=== PATIENT | female | born 1945 | race Hispanic/Latino ===

== ENCOUNTER 2025-04-09 11:24 | Inpatient (IN) | payer MEDICARE ==
[~2025-04-09] VITALS: Ht 154.9 cm; Wt 75.3 kg
--- NOTE | 2025-04-09 11:32 | ERN ---
ED Note History of Present Illness Stated Complaint: BREATHING PROBLEMS Time Seen by MD: 11:26 Dictation: PATIENT IS A 79-YEAR-OLD FEMALE COMING IN TODAY WITH FROM HER PRIMARY CARE DOCTOR'S OFFICE WITH GENERALIZED BODY WEAKNESS AND SHORTNESS A BREATH MORE WITH ANY EXERTION SINCE LAST WEDNESDAY. SHE DENIES CHEST PAIN BACK PAIN NO NAUSEA VOMITING NO ARM PAIN NO JAW PAIN. STATES SHE HAS NO CHRONIC COMORBIDITIES. SHE HAS HAD NO FEVER NO CHILLS DENIES ANY HISTORY OF CHRONIC PULMONARY DISEASE OR TOBACCO ABUSE. 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 Allergies: Coded Allergies: empagliflozin (Unverified Allergy, Mild, 04/09/25) VAGINAL ITCHING No Allergy Information Available (Verified Allergy, Unknown, 04/09/25) Home Meds Active Scripts Albuterol Sulfate (Ventolin Hfa/Proventil Hfa/Proair Hfa) 90 Mcg Puff, 2 PUFF IH Q4H for WHEEZING, #1 INHALER 0 Refills Prov:GLENNY HAILE BRUSH CLEARER SURVEYING 04/09/25 Furosemide (Lasix) 20 Mg Tablet, 1 TAB PO DAILY for 5 Days, #5 TAB 0 Refills Prov:GLENNY HAILE BR[employer] CLE[employer] SURVEYING 04/09/25 Past Medical History History: Not Applicable RN Note Reviewed/Agreed w/PFSH: Yes Review of System Dictation CONSTITUTIONAL: NEGATIVE EXCEPT FOR HPI GENERALIZED BODY WEAKNESS HEAD/FACE: NEGATIVE EXCEPT FOR HPI EENT: NEGATIVE EXCEPT FOR HPI RESPIRATORY: NEGATIVE EXCEPT FOR HPI EXERTIONAL SOB GASTROINTESTINAL/ABDOMINAL: NEGATIVE EXCEPT FOR HPI GENITOURINARY: NEGATIVE EXCEPT FOR HPI MUSCULOSKELETAL: NEGATIVE EXCEPT FOR HPI INTEGUMENTARY: NEGATIVE EXCEPT FOR HPI NEUROLOGICAL/PSYCH: NEGATIVE EXCEPT FOR HPI HEMATOLOGIC/LYMPHATIC: NEGATIVE EXCEPT FOR HPI ALL SYSTEMS NEGATIVE, EXCEPT NOTED ABOVE. 13 POINT REVIEW OF SYSTEMS ASSESSED AND ALL NEGATIVE EXCEPT FOR ABOVE. Initial Vital Sign VS Vital Signs Date Time Temp Pulse Resp B/P (MAP) Pulse Ox O2 Delivery O2 Flow Rate FiO2 04/09/25 11:37 98.4 80 16 139/72 95 Nasal Cannula 4.0 04/09/25 12:01 21 Physical Exam Dictation VITAL SIGNS REVIEWED GENERAL APPEARANCE: ALERT, ORIENTED X 3, NO ACUTE DISTRESS, WELL DEVELOPED, NOURISHED. HEAD AND FACE: NON-TRAUMATIC. EYES: PERRL, PINK CONJUNCTIVAS, EYELID NO TRAUMA, ANTERIOR CHAMBER WITH ARCUS SENILIS. EARS: PINNAS INTACT AND NO SIGNS OF TRAUMA OR ERYTHEMA EAR CANALS CLEAR AND NO DISCHARGE TM NO ERYTHEMA NOSE: NO DISCHARGE, NO BLEEDING. OROPHARYNX: MOUTH NORMAL, TONGUE PINK, PHARYNX CLEAR,NO ERYTHEMA, TONSILS NO EXUDATES, NO ABSCESSES NOTED, MUCOUS MEMBRANE MOIST NECK: SUPPLE, NON-TENDER, NO THYROMEGALY, NO MASSES, NO JVD, NO BRUITS BREAST:DEFERRED CHEST:NO TENDERNESS, NO CREPITUS, NO PARADOXICAL MOVEMENT, NO RETRACTIONS LUNGS:CLEAR, WELL-VENTILATED, SYMMETRIC, BILATERAL BREATH SOUNDS CLEAR TO AUSCULTATION, DIMINISHED IN THE BASES. HEART: REGULAR RATE, REGULAR RHYTHM, NO MURMUR, NO GALLOPS VASCULAR: NO PERIPHERAL EDEMA, ABDOMEN: SOFT, POSITIVE BOWEL SOUNDS, NONDISTENDED, NO GUARDING, NONTENDER, NO REBOUND, NO MASSES NO HEPATOMEGALY, NO SPLENOMEGALY, NO WIGGINS'S SIGN, NO HERNIAS. RECTAL: DEFERRED GENITAL: DEFERRED NEUROLOGICAL: NORMAL SPEECH, MOTOR FUNCTION INTACT, SENSORY FUNCTION INTACT MUSCULOSKELETAL: NECK NONTENDER, FULL RANGE OF MOTION, BACK NONTENDER, FULL RANGE OF MOTION, EXTREMITIES: NONTENDER, FULL RANGE OF MOTION SKIN: COLOR PINK, DRY, NO TURGOR, NO RASH, NO LACERATIONS, NO ABRASIONS, NO CONTUSIONS. LYMPHATIC: DEFERRED Results (Laboratory/Radiology) Laboratory/Radiology Laboratory Tests Test 04/09/25 11:30 04/09/25 11:48 04/09/25 15:04 White Blood Count 7.7 K/uL (4.8-10.8) Red Blood Count 4.14 MIL/uL (4.00-5.50) Hemoglobin 11.6 g/dL (12.0-16.0) L Hematocrit 36.5 % (36-48) Mean Corpuscular Volume 88.2 fL (79-99) Mean Corpuscular Hemoglobin 28.0 pg (27.0-33.0) Mean Corpuscular Hemoglobin Concent 31.8 g/dL (32.0-36.0) L Red Cell Distribution Width 15.9 % (11.0-15.5) H Platelet Count 202 K/uL (130-400) Mean Platelet Volume 10.9 fL (7.5-10.5) H Immature Granulocyte % (Auto) 0.3 % (0-1) Neutrophils (%) (Auto) 65.5 % (40.0-77.0) Lymphocytes (%) (Auto) 23.8 % (21.0-51.0) Monocytes (%) (Auto) 7.3 % (3.0-13.0) Eosinophils (%) (Auto) 2.6 % (0.0-8.0) Basophils (%) (Auto) 0.5 % (0.0-5.0) Neutrophils # (Auto) 5.0 K/uL (1.8-7.7) Lymphocytes # (Auto) 1.8 K/uL (1.0-4.8) Monocytes # (Auto) 0.6 K/uL (0.1-1.0) Eosinophils # (Auto) 0.20 K/uL (0.00-0.70) Basophils # (Auto) 0.04 K/uL (0.00-0.20) Absolute Immature Granulocyte (auto 0.02 K/uL (0-1) Nucleated Red Blood Cells 0.0 % (0.0-0.19) Sodium Level 142 mmol/L (136-145) Potassium Level 3.8 mmol/L (3.5-5.1) Chloride Level 106 mmol/L (101-111) Carbon Dioxide Level 25 mmol/L (21-32) Blood Urea Nitrogen 17 mg/dL (7-18) Creatinine 0.6 mg/dL (0.5-1.0) Glomerular Filtration Rate Calc 91 mL/min (>90) Random Glucose 128 mg/dL (70-105) H Total Calcium 9.1 mg/dL (8.5-10.1) Troponin I High Sensitivity 22 ng/L (4-50) B-Type Natriuretic Peptide 183 pg/mL (0-100) H SARS-CoV-2 Antigen (Rapid) PRESUMPTIVE NEGATIVE Urine Color COLORLESS (YELLOW) Urine Appearance CLEAR (CLEAR) Urine pH 5.5 (5.0-8.0) Urine Specific [place] 1.005 (1.001-1.031) Urine Protein NEGATIVE mg/dL (NEGATIVE) Urine Glucose (UA) NEGATIVE mg/dL (NEGATIVE) Urine Ketones NEGATIVE mg/dL (NEGATIVE) Urine Occult Blood NEGATIVE (NEGATIVE) Urine Nitrate NEGATIVE (NEGATIVE) Urine Bilirubin NEGATIVE mg/dL (NEGATIVE) Urine Urobilinogen 0.2 mg/dL (0.2-1.0) Urine Leukocyte Esterase NEGATIVE Walker/uL Labs Reviewed?: Yes EKG Comment: EKG SINUS RHYTHM/HEART RATE 76/T-WAVE INVERSION V4 AND V5 QT INTERVAL 503 MILLISECOND ED Course ED Course Orders Procedure Category Date Status Time B-Type Natriuretic LAB 04/09/25 Complete Peptide 11:29 Albuterol 0.083% PHA 04/09/25 Complete 2.5mg/3ml (Proventil 11:30 Oxygen By Nc/Pulse Ox CPOE 04/09/25 Transmitted 11:29 Covid19 (Sars Antigen LAB 04/09/25 Complete Rapid) 11:29 Cbc With Differential LAB 04/09/25 Complete 11:29 Troponin I High LAB 04/09/25 Complete Sensitivity 11:29 Urinalysis Profile LAB 04/09/25 Complete 11:29 12 Lead Ekg Tracing- EKG 04/09/25 Resulted Technical 11:29 Chest 1vw RAD 04/09/25 Resulted 11:29 Basic Metabolic Panel LAB 04/09/25 Complete 11:29 Furosemide 40mg Vial PHA 04/09/25 Complete (Lasix 40mg Vial) 13:30 Furosemide 40mg Vial PHA 04/09/25 Complete (Lasix 40mg Vial) 13:30 Admit Orders ADM 04/09/25 Verified 16:26 Edm Admit Bridge Order ADM 04/09/25 Verified 16:26 Current Medications Medications (Trade) Dose Ordered Sig/[place] Route PRN Reason Start Time Stop Time Status Last Admin Dose Admin Albuterol Sulfate (Proventil 0.083% 2.5mg/3ml) 2.5MG ONCE ONCE IH 04/09/25 11:30 04/09/25 11:31 DC 04/09/25 12:26 Furosemide (LASix 40MG VIAL) 40 mg ONCE IV 04/09/25 13:30 04/09/25 13:16 DC Furosemide (LASix 40MG VIAL) 40 mg ONCE ONCE IV 04/09/25 13:30 04/09/25 13:31 DC 04/09/25 13:21 Vital Signs Date Time Temp Pulse Resp B/P (MAP) Pulse Ox O2 Delivery O2 Flow Rate FiO2 04/09/25 12:26 78 20 04/09/25 12:01 97.7 80 17 129/57 95 Room Air* 0 21 04/09/25 11:37 98.4 80 16 139/72 95 Nasal Cannula 4.0 1540/VITAL SIGNS ARE STABLE PATIENT IS HEMODYNAMICALLY STABLE. PATIENT IS SATURATING NINETY-FOUR 95% ON 2 L NASAL CANNULA, WHEN NASAL CANNULA IS REMOVE SHE DESATURATES DOWN TO 80-83%. SHE COME HIM DYSPNEIC ON EXERTION WITHOUT O2. WE WILL FOLLOW UP WITH [facility] AND HAVE PATIENT ADMITTED TO THE HOSPITAL PATIENT'S DAUGHTER AT BEDSIDE AND STATES THIS IS THE REASON SHE HAS BEEN SEEING DR. DAUGHERTY, IS BECAUSE OF DESATURATIONS AND DYSPNEA ON EXERTION OVER THE LAST YEAR. THEY STATE IT HAS GOTTEN PROGRESSIVELY WORSE. SHE DOES NOT USE HOME OXYGEN 1630/SPOKE WITH [facility] HOSPITAL[facility] REVIEWED CHEST X-RAY EKG LABS AND INTERVENTIONS FOR HYPOXIA. HE AGREED TO ADMIT PATIENT HEART Score Response (Comments) Value EKG: Repolarization changes 1 Age: > 65yrs (+2) 2 Risk Factors: 1-2 risk factors (+1) 1 Initial Troponin: Normal limit (0) 0 Total 4 Medical Decision Making MDM MDM: DIFFERENTIAL DIAGNOSIS: SARS COVID/PNEUMONIA/RIGHT/ELECTROLYTE IMBALANCE/DEHYDRATION/FLUID OVERLOAD/UTI/INFECTION/SEPSIS HYPOXIA/HYPOXEMIA RATIONALE: TESTS CONSIDERED AND ORDERED SECONDARY TO SHARED DECISION MAKING INCLUDE: EKG/LABS/RADIOLOGY PREVIOUS OUTSIDE RECORDS REVIEWED: OLD ER VISITS. RISK OF COMPLICATION AND/OR MORBIDITY OR MORTALITY OF PATIENT MANAGEMENT: NONE MEDICATIONS-PER MEDICATION RECONCILIATION NEED FOR HOSPITALIZATION: PATIENT DOES NOT MEET CRITERIA FOR HOSPITALIZATION. PATIENT WILL BE ADMITTED FOR WORKUP AND CONSULTATION WITH PULMONOLOGY VERSUS CARDIOLOGY'S NEED FOR EMERGENCY MAJOR/MINOR SURGERY: NO THERE ARE NO SOCIAL CONCERNS WITH THIS PATIENT. PRESCRIPTION DRUG MANAGEMENT PRESCRIPTIONS WILL INCLUDE SYMPTOMATIC CARE PATIENT'S PRIOR EXTERNAL MEDICAL RECORDS FROM OTHER ER VISITS WERE REVIEWED BY ME INDICATED. PRIOR TESTING AND RESULTS FROM PREVIOUS VISITS WERE REVIEWED. PRIOR TESTS WERE TAKEN INTO ACCOUNT WITH MEDICAL DECISION MAKING AND RESOURCE UTILIZATION, INDEPENDENT HISTORIAN/HISTORIANS WERE USED TO OBTAIN COMPLETE MEDICAL HISTORY. I INDEPENDENTLY INTERPRETED THE TEST THAT WERE PERFORMED, RESULTS WERE REVIEWED BY ME AND CONSIDERED FINDINGS ON RADIOLOGY IF ORDERED. MEDICAL MANAGEMENT AND EXAMINATION INTERPRETATION DISCUSSIONS WERE HAD BY ME WITH OTHER QUALIFIED HEALTHCARE PROFESSIONALS INDICATED FOR THE PATIENT'S CARE. DX & DISP Disposition: Inpatient Decision to Admit Time: 15:54 Departure Impression: Primary Impression: Elevated brain natriuretic peptide (BNP) level Additional Impressions: Dyspnea on exertion, Hyperglycemia, Oxygen dependent, Hypoxia Condition: Stable Scripts Albuterol Sulfate (Ventolin Hfa/Proventil Hfa/Proair Hfa) 90 Mcg Puff 2 PUFF IH Q4H for WHEEZING, #1 INHALER 0 Refills Prov: GLENNY HAILE NP 04/09/25 Furosemide (Lasix) 20 Mg Tablet 1 TAB PO DAILY for 5 Days, #5 TAB 0 Refills Prov: GLENNY HAILE BRUSH CLEARER SURVEYING 04/09/25 Additional Instructions: FOLLOW-UP WITH PRIMARY CARE PROVIDER IN 1 TO 2 DAYS. TAKE MEDICATIONS DIRECTED HERE IN THE EMERGENCY ROOM. OKAY TO CONTINUE HOME MEDICATIONS UNLESS OTHERWISE DISCUSSED DURING YOUR VISIT IN THE EMERGENCY ROOM TODAY. RETURN TO YOUR NEAREST EMERGENCY ROOM IF SYMPTOMS WORSEN OR IF THERE IS NO IMPROVEMENT. CALL 911 IF YOU NEED IMMEDIATE ASSISTANCE. TAKE TYLENOL OR MOTRIN JMUM-ANY-CYSRWYC NEEDED AND IF NO CONTRAINDICATIONS ARE PRESENT. INCREASE ORAL HYDRATION. A WOUND CULTURE OR URINE CULTURE WAS ORDERED HERE IN THE EMERGENCY ROOM DEPARTMENT PLEASE FOLLOW-UP WITH PRIMARY CARE PROVIDER AND ADVISE THEM TO GET REPEAT PORTS FROM OUR FACILITY. IF YOU HAD ANY TRAVIS WRAP/SPLINTS THAT WERE APPLIED HERE, PLEASE DO NOT REMOVE THEM UNTIL YOU SEE YOUR PRIMARY CARE OR SPECIALTY. TAKE LASIX DIRECTED FOR THE NEXT FIVE DAYS. USE ALBUTEROL INHALER EVERY 4 HOURS WHILE AWAKE FOR THE NEXT 24 HOURS. SEE YOUR PRIMARY CARE DOCTOR FOR FOLLOW UP AND MANAGEMENT. Referrals: NATHAN BARLOW MD (PCP) Time of Disposition: 15:41 I have reviewed the case, and I agree with, Diagnosis and Plan GLENNY HAILE NP Apr 09, 2025 11:32
[2025-04-09 11:45] LABS: IMMATURE GRANULOCYTE ABSOLUTE 0.02 K/uL (0-1); NUCLEATED RED BLOOD CELLS 0.0 % (0.0-0.19); PLATELET COUNT (AUTO) 202 K/uL (130-400); RED BLOOD CELL COUNT(AUTO) 4.14 MIL/uL (4.00-5.50); RED CELL DISTRIBUTION WIDTH 15.9 % (11.0-15.5); WHITE BLOOD COUNT (AUTO) 7.7 K/uL (4.8-10.8)
[2025-04-09 11:59] LABS: CREATININE 0.6 mg/dL (0.5-1.0); GLOMERULAR FILTR. RATE CALC 91.0 mL/min (>90); GLUCOSE,RANDOM 128.0 mg/dL (70-105); SODIUM SERUM 142.0 mmol/L (136-145); UREA NITROGEN, BLOOD 17.0 mg/dL (7-18)
--- NOTE | 2025-04-09 12:17 | HMCIMG ---
EXAM: CR Chest, 1 View. CLINICAL HISTORY: SHORTNESS A BREATH/CHEST PAIN FIVE DAYS COMPARISON: None provided. FINDINGS: LUNGS: Moderate pulmonary vascular congestion. No focal infiltrates. PLEURAL SPACES: No evidence of pleural effusion or pneumothorax. MEDIASTINUM: Cardiomegaly. BONES: No acute osseous abnormality. IMPRESSION: 1. Cardiomegaly. 2. Moderate pulmonary vascular congestion. No focal infiltrates. /[place]
--- NOTE | 2025-04-09 12:18 | EKG ---
[facility] Test Date: 2025-04-09 Test Time: 11:51:10 Pat Name: JANKI ANNE Department: [facility] Room: Gender: F Position Description Manager: [id number] : 1945 Requested By: GLENNY HAILE Order Number: [id number] Reading MD: Junie Acosta Measurements Intervals [place] Rate: 76 P: -3 PA: 154 QRS: -32 QRSD: 95 T: -55 QT: 448 QTc: 503 Interpretive Statements Sinus rhythm Inferior infarct, old Abnormal T, consider ischemia, anterior leads Prolonged QT interval No previous ECG available for comparison Electronically Signed On 04-09-2025 15:31:40 CDT by Junie Acosta Please click the below link to view image of tracing.
[2025-04-09 12:26] VITALS: PULSE 78; RESP 20
[2025-04-09] MEDS: ALBUTEROL 0.083% 2.5 MG/3 ML INH IH ONE (12:26)
[2025-04-09 15:22] LABS: APPEARANCE,URINE CLEAR (CLEAR); GLUCOSE, URINE (UA) NEGATIVE (NEGATIVE); LEUKOCYTE ESTERASE ,URINE NEGATIVE Leu/uL (NEGATIVE); NITRATE,URINE NEGATIVE (NEGATIVE); OCCULT BLOOD,URINE NEGATIVE (NEGATIVE)
[2025-04-09 15:25] LABS: ADD UA MICROSCOPIC NO
[2025-04-09] MEDS ORDERED: FURO-152 PO (15:41)
[2025-04-09] MEDS ORDERED: ALBUHFA IH (15:41)
[2025-04-09] MEDS ORDERED: LACTULOSE 20 GM/30 ML UDCUP PO PRN (18:00)
[2025-04-09] MEDS ORDERED: NITROGLYCERIN 0.4 MG SL TAB SL PRN (18:00)
[2025-04-09] MEDS ORDERED: guaiFENesin-DM 200/20MG 10ML PO PRN (18:00)
[2025-04-09] MEDS ORDERED: HYDROcodone/APAP 5/325 1 TAB TABLET PO PRN (18:00)
[2025-04-09] MEDS ORDERED: METF-446 PO (18:53)
[2025-04-09] MEDS ORDERED: PANT40TA54 PO (18:53)
[2025-04-09] MEDS ORDERED: NAPR-1194 PO (18:53)
[2025-04-09] MEDS ORDERED: DILT120T PO (18:53)
[2025-04-09] MEDS ORDERED: CA/D1TAB7 PO (18:53)
[2025-04-09] MEDS ORDERED: ALEN70TA80 PO (18:53)
[2025-04-09] MEDS ORDERED: PRAV40TA62 PO (18:53)
[2025-04-09] MEDS ORDERED: METO-391 PO (18:53)
[2025-04-09] MEDS ORDERED: CYCL5TAB3 PO (18:53)
--- NOTE | 2025-04-09 18:53 | NUR ---
HOME MEDS ENTERED
--- NOTE | 2025-04-09 20:17 | HP ---
[facility] HISTORY & PHYSICAL Date Patient Seen: Apr 09, 2025 Time of Visit: 20:14 Supervising Physician: Dr. Jagjit Zaldivar Primary Care Physician: Dr. Ferguson Outpatient Specialists: Dr. Acosta Inpatient Consults: [ ] PROBLEM LIST: Acute hypoxic respiratory failure, POA CHF in acute exacerbation, POA Hypertension, POA Hyperlipidemia, POA DM type 2, POA Morbid obesity, class II POA PLAN: Admit to medical-surgical floor with telemetry VS per unit protocol Continue O2 therapy Keep head of bed above 30 Start patient on Lasix 40 mg IV b.i.d. x4 doses Facilitate 2D echo Continue cardiac monitoring Keep potassium level above four, magnesium level above two Incentive spirometry Keep SBP less than 160 P.r.n. hydralazine and labetalol Keep serum glucose less than 150 ISS and fingerstick per unit protocol CBC, CMP, magnesium level daily HPI: 79-year-old female with past medical history of hypertension, DM type 2, hyperlipidemia, gastritis, who presented to ED with complaint of worsening shortness of breaths and found to have congestive heart failure. Apparently patient has been having issues with shortness of breaths worse with exertion, there is no associated dizziness, chest pain, or palpitation. Patient also denies any productive cough, fever, or flu-like symptoms. Patient denies any use of oxygen at home or CPAP. Patient was seen and examined in ED with sister present at bedside. According to the patient she is supposed to see Dr. Acosta for evaluation of worsening shortness of breath however due to family problem they were not able to make the appointment. In ED stat chest x-ray was done and showed bilateral pulmonary infiltrates with vascular congestion, CBC unrevealing for any acute infection, her chemistry is significant for BNP of 180, with unremarkable troponin level and EKG. In ED patient was subsequently placed on oxygen with significant improvement on her symptoms. At present patient is currently hemodynamically stable, on nasal cannula with appropriate oxygen saturation, denies any headache, chest pain, shortness of breath, abdominal pain, flank pain, difficulty urinating, or abdominal pain. Patient denies any smoking, alcohol intake, or illicit drug use. PAST MEDICAL HX: see above PAST SURGICAL HX: noncontributory SOCIAL HISTORY: No tobacco, ETOH, or illicit drug use Coded Allergies: empagliflozin (Unverified Allergy, Mild, 04/09/25) VAGINAL ITCHING No Allergy Information Available (Verified Allergy, Unknown, 04/09/25) REVIEW OF SYSTEMS: 12 point ROS reviewed with patient. Pertinent positives mentioned above. Otherwise negative. PHYSICAL EXAM: GENERAL: alert, weak, awake oriented x 3 HEENT: EOMI, Sclera non icteric, moist mucosa NECK: Supple, no JVD, trachea midline LUNGS: Scattered rales on auscultation HEART: Regular rate and rhythm. Normal S1 and S2, without murmurs ABD: Abdomen soft, nontender. Bowel sounds present EXT: No clubbing cyanosis or edema NEURO: Alert and oriented to person, follows commands Vital Signs (last 8hr) Date Time Temp Pulse Resp B/P (MAP) Pulse Ox O2 Delivery O2 Flow Rate FiO2 04/09/25 20:09 99.3 78 22 115/57 95 Nasal Cannula* 3 32 04/09/25 18:54 98.1 77 19 129/57 93 Nasal Cannula* 3 04/09/25 12:26 78 20 LABS: Hematology Labs: Test 04/09/25 11:30 Range/Units White Blood Count 7.7 4.8-10.8 K/uL Red Blood Count 4.14 4.00-5.50 MIL/uL Hemoglobin 11.6 L 12.0-16.0 g/dL Hematocrit 36.5 36-48 % Mean Corpuscular Volume 88.2 79-99 fL Mean Corpuscular Hemoglobin 28.0 27.0-33.0 pg Mean Corpuscular Hemoglobin Concent 31.8 L 32.0-36.0 g/dL Red Cell Distribution Width 15.9 H 11.0-15.5 % Platelet Count 202 130-400 K/uL Mean Platelet Volume 10.9 H 7.5-10.5 fL Immature Granulocyte % (Auto) 0.3 0-1 % Neutrophils (%) (Auto) 65.5 40.0-77.0 % Lymphocytes (%) (Auto) 23.8 21.0-51.0 % Monocytes (%) (Auto) 7.3 3.0-13.0 % Eosinophils (%) (Auto) 2.6 0.0-8.0 % Basophils (%) (Auto) 0.5 0.0-5.0 % Neutrophils # (Auto) 5.0 1.8-7.7 K/uL Lymphocytes # (Auto) 1.8 1.0-4.8 K/uL Monocytes # (Auto) 0.6 0.1-1.0 K/uL Eosinophils # (Auto) 0.20 0.00-0.70 K/uL Basophils # (Auto) 0.04 0.00-0.20 K/uL Absolute Immature Granulocyte (auto 0.02 0-1 K/uL Nucleated Red Blood Cells 0.0 0.0-0.19 % Chemistry Labs: Test 04/09/25 11:30 Range/Units Sodium Level 142 136-145 mmol/L Potassium Level 3.8 3.5-5.1 mmol/L Chloride Level 106 101-111 mmol/L Carbon Dioxide Level 25 21-32 mmol/L Blood Urea Nitrogen 17 7-18 mg/dL Creatinine 0.6 0.5-1.0 mg/dL Glomerular Filtration Rate Calc 91 >90 mL/min Random Glucose 128 H 70-105 mg/dL Total Calcium 9.1 8.5-10.1 mg/dL Troponin I High Sensitivity 22 4-50 ng/L B-Type Natriuretic Peptide 183 H 0-100 pg/mL DIAGNOSTICS / RADIOLOGY RESULTS: [ ] EXAM: CR Chest, 1 View. CLINICAL HISTORY: SHORTNESS A BREATH/CHEST PAIN FIVE DAYS COMPARISON: None provided. FINDINGS: LUNGS: Moderate pulmonary vascular congestion. No focal infiltrates. PLEURAL SPACES: No evidence of pleural effusion or pneumothorax. MEDIASTINUM: Cardiomegaly. BONES: No acute osseous abnormality. IMPRESSION: 1. Cardiomegaly. 2. Moderate pulmonary vascular congestion. No focal infiltrates. PLAN NEURO: Minimize central acting medications as possible. Maintain fall precautions, adequate lighting during the day PULMONARY: Supplemental 02 as needed. Maintain aspiration precautions at all times CARDIOVASCULAR: Follow hemodynamics. Vital signs per facility protocol GI & NUTRITION: Continue with nutritional support. Continue stool softeners and laxatives as needed. KIDNEYS & ELECTROLYTES: Strict monitoring of intake, output and overall fluid balance. Avoid nephrotoxic medications to the extent possible. Medications to be dosed according to renal function. Monitor electrolytes and replace as needed ENDOCRINE: Maintain blood glucose between 100-180 at all times. Hypoglycemia protocol in place INFECTIOUS DISEASE: Trend temperature, WBC and procalcitonin level Follow cultures, deescalate antibiotics as soon as possible. Panculture if new onset fever ONCOLOGY/HEMATOLOGY/COAGULATION: Monitor for s/s of bleeding Monitor hemoglobin, coagulation studies as needed SKIN: Pressure ulcer prevention per facility protocol Specialty mattress ORTHO/REHAB: Continue PT/OT Prophylaxis: Continue GI and DVT prophylaxis Code Status: Full Resuscitation Disposition: TBD Supervising physician Dr. Jagjit GLASER,ERICKA Vasquez BLOW MACHINE TENDER [employer] Apr 09, 2025 20:17
[2025-04-09] MEDS: FAMOTIDINE 20MG VIAL IV SCH (21:01)
--- NOTE | 2025-04-09 21:51 | NUR ---
REPORT GIVEN TO MARSHA HANDY
--- NOTE | 2025-04-09 21:55 | NUR ---
PATIENT TRANSPORTED TO [facility]
[2025-04-09 22:05] VITALS: BP 139/71; PULSE 83; RESP 22; TEMP 97.9; O2SAT 96
[2025-04-10 03:25] VITALS: BP 107/58; PULSE 81; RESP 16; TEMP 98
[2025-04-10 08:00] VITALS: O2SAT 96
[2025-04-10 08:13] VITALS: BP 130/70; PULSE 84; RESP 18; TEMP 97.9
[2025-04-10] MEDS: ENOXAPARIN SODIUM 40 MG/0.4 ML SYRINGE SQ SCH (09:21)
[2025-04-10 11:01] VITALS: BP 142/74; PULSE 99; RESP 18; TEMP 97.8
--- NOTE | 2025-04-10 13:04 | NUR ---
DCP: HOME Pt currently lives with sps and dgt. pt does not report any insecurities with food, senior living, and/or utilities. Pt does not have DME, home health, or provider services. Dgt states that prior to admission pt was going to begin PT at home however could not remember the agency but had not started any sessions yet. PCP is Dr. Clint Ferguson and uses [facility] for any RX needs. At DC pt will want to go home and family can assist with transportation. Addendum: 04/10/25 at 1306 by MAG WILLIAM SS Amended: Links added.
[2025-04-10 15:54] VITALS: BP 134/69; PULSE 111; RESP 18; TEMP 98.3
--- NOTE | 2025-04-10 18:37 | PN ---
[facility] PROGRESS NOTE Date Patient Seen: Apr 10, 2025 Time of Visit: 1405 Supervising Physician: Dr. Kahn Primary Care Physician: Dr. Ferguson Outpatient Specialists: Dr. Acosta Inpatient Consults: [ ] PROBLEM LIST: Acute hypoxic respiratory failure, POA CHF in acute exacerbation, POA , pending echocardiogram Hypertension, POA Hyperlipidemia, POA DM type 2, POA Morbid obesity, class II POA PLAN: VS per unit protocol We will need a 6 minute walk prior to discharge for home oxygen evaluation Nursing staff to continue to actively titrate FiO2 as tolerated Continue O2 therapy Keep head of bed above 30 Continue Lasix 40 mg IV b.i.d. x4 doses Facilitate 2D echo , pending official report Continue cardiac monitoring Keep potassium level above four, magnesium level above two Incentive spirometry Keep SBP less than 160 P.r.n. hydralazine and labetalol Keep serum glucose less than 150 ISS and fingerstick per unit protocol INTERVAL HISTORY: 04/10 patient was seen and examined by bedside with family present. Patient remains hypoxic requiring supplemental oxygen via nasal cannula. Patient currently on 4 L. Patient at this time does not report any chest pain does report some shortness of breadth upon minimal exertion. Patient states does not use home oxygen. Patient's chest x-ray showing vascular congestion. Patient to continue on IV Lasix. Patient currently pending official report from echocardiogram. We will follow up with results and continue to monitor patient closely. Patient will require 6 minute walk prior to discharge. Nursing staff to continue to actively titrate FiO2 as tolerated REVIEW OF SYSTEMS: 12 point ROS reviewed with patient. Pertinent positives mentioned above. Otherwise negative. PHYSICAL EXAM: GENERAL: alert, weak, awake oriented x 3 HEENT: EOMI, Sclera non icteric, moist mucosa NECK: Supple, no JVD, trachea midline LUNGS: Scattered rales on auscultation HEART: Regular rate and rhythm. Normal S1 and S2, without murmurs ABD: Abdomen soft, nontender. Bowel sounds present EXT: No clubbing cyanosis or edema NEURO: Alert and oriented to person, follows commands Vital Signs (last 8hr) Date Time Temp Pulse Resp B/P (MAP) Pulse Ox O2 Delivery O2 Flow Rate FiO2 04/10/25 15:54 98.2 111 18 134/69 95 Nasal Cannula 4.0 04/10/25 11:01 97.9 99 18 142/74 96 Nasal Cannula 4.0 LABS: Hematology Labs: Test 04/09/25 11:30 Range/Units White Blood Count 7.7 4.8-10.8 K/uL Red Blood Count 4.14 4.00-5.50 MIL/uL Hemoglobin 11.6 L 12.0-16.0 g/dL Hematocrit 36.5 36-48 % Mean Corpuscular Volume 88.2 79-99 fL Mean Corpuscular Hemoglobin 28.0 27.0-33.0 pg Mean Corpuscular Hemoglobin Concent 31.8 L 32.0-36.0 g/dL Red Cell Distribution Width 15.9 H 11.0-15.5 % Platelet Count 202 130-400 K/uL Mean Platelet Volume 10.9 H 7.5-10.5 fL Immature Granulocyte % (Auto) 0.3 0-1 % Neutrophils (%) (Auto) 65.5 40.0-77.0 % Lymphocytes (%) (Auto) 23.8 21.0-51.0 % Monocytes (%) (Auto) 7.3 3.0-13.0 % Eosinophils (%) (Auto) 2.6 0.0-8.0 % Basophils (%) (Auto) 0.5 0.0-5.0 % Neutrophils # (Auto) 5.0 1.8-7.7 K/uL Lymphocytes # (Auto) 1.8 1.0-4.8 K/uL Monocytes # (Auto) 0.6 0.1-1.0 K/uL Eosinophils # (Auto) 0.20 0.00-0.70 K/uL Basophils # (Auto) 0.04 0.00-0.20 K/uL Absolute Immature Granulocyte (auto 0.02 0-1 K/uL Nucleated Red Blood Cells 0.0 0.0-0.19 % Chemistry Labs: Test 04/09/25 11:30 Range/Units Sodium Level 142 136-145 mmol/L Potassium Level 3.8 3.5-5.1 mmol/L Chloride Level 106 101-111 mmol/L Carbon Dioxide Level 25 21-32 mmol/L Blood Urea Nitrogen 17 7-18 mg/dL Creatinine 0.6 0.5-1.0 mg/dL Glomerular Filtration Rate Calc 91 >90 mL/min Random Glucose 128 H 70-105 mg/dL Total Calcium 9.1 8.5-10.1 mg/dL Troponin I High Sensitivity 22 4-50 ng/L B-Type Natriuretic Peptide 183 H 0-100 pg/mL DIAGNOSTICS / RADIOLOGY RESULTS: na PLAN NEURO: Minimize central acting medications as possible. Maintain fall precautions, adequate lighting during the day PULMONARY: Supplemental 02 as needed. Maintain aspiration precautions at all times CARDIOVASCULAR: Follow hemodynamics. Vital signs per facility protocol GI & NUTRITION: Continue with nutritional support. Continue stool softeners and laxatives as needed. KIDNEYS & ELECTROLYTES: Strict monitoring of intake, output and overall fluid balance. Avoid nephrotoxic medications to the extent possible. Medications to be dosed according to renal function. Monitor electrolytes and replace as needed ENDOCRINE: Maintain blood glucose between 100-180 at all times. Hypoglycemia protocol in place INFECTIOUS DISEASE: Trend temperature, WBC and procalcitonin level Follow cultures, deescalate antibiotics as soon as possible. Panculture if new onset fever ONCOLOGY/HEMATOLOGY/COAGULATION: Monitor for s/s of bleeding Monitor hemoglobin, coagulation studies as needed SKIN: Pressure ulcer prevention per facility protocol Specialty mattress ORTHO/REHAB: Continue PT/OT Prophylaxis: Continue GI and DVT prophylaxis Code Status: Full Resuscitation Disposition: TBD Case discussed with supervising physician plan of care agreed upon MORENA BECK Apr 10, 2025 18:37
[2025-04-10 20:00] VITALS: BP 133/57; PULSE 88; RESP 22; TEMP 98; O2SAT 95
--- NOTE | 2025-04-10 22:02 | HMCSR ---
APPROVED REPORT EXAM: Two-dimensional and M-mode echocardiogram with Doppler and color Doppler. INDICATION ICD: congestive heart failure 2D Dimensions RVDd3.2 cmLVEF(%)50.6 (>50%)LVED Vol(simp.)54.5 mL IVSd0.9 (0.7-1.1cm)FS(%)25 %LVES Vol(simp.)32.2 mL LVDd3.6 (3.8-5.6cm)LA (2D)2.6 (1.6-4.0cm)LVEF(%, simp.)41 % PWd1.0 (0.7-1.1cm)Ao Root(2D)3.4 (2.0-3.7cm)LA ESV INDEX (BP)23.93 mL/m2 LVDs2.7 (2.5-4.0cm)LVOT diam2.4 (1.8-2.4cm) IVC diam1.0 cm Deformation Strain Apical 4-13.5 % Apical 2-13.8 % Apical 3-19.2 % Global Strain-15.5 % M-Mode Dimensions EPSS0.6 cm LA (MM)4.1 (1.6-4.0cm) Ao Root(MM)3.6 (2.0-3.7cm) Aortic Valve AoV Vmax1.1 m/Denilson Peak GR5.3 mmHgLVOT Vmax1.0 m/s AoV VTI0.2 mAo Mean GR2.4 mmHgLVOT VTI0.14 m DUDLEY (VMAX)3.94 cm2Al P1/2T401 msAVA (VTI) 3.8 cm2 Mitral Valve MV E Vmax51.4 cm/sDECEL Onki702 ms MV A Mssx216.5 cm/sP 1/2 T35 ms E/A ratio0.5MVA (PHT)6.3 cm2 TDI E/E' Medial7.3E/E' Lateral6.9 Medial E' Peak V7.08 cm/sLateral E' Peak V7.50 cm/s Pulmonary Valve PV Vmax0.6 m/s PV Peak GR1.6 mmHg Tricuspid Valve TR Vmax1.9 m/sRVSP15.0 mmHg TR Peak GR15.5 mmHg Left Ventricle The left ventricle is normal size. There is normal LV segmental wall motion. Moderate concentric LVH. LVEF is 55-60%. The left ventricular diastolic function is normal. Right Ventricle The right ventricle is moderately dilated. There is normal right ventricular wall thickness. The righ t ventricular systolic function is moderately depressed. Atria The left atrium size is normal. The right atrium size is mildly dilated. Aortic Valve The aortic valve is normal in structure. Mild to moderate aortic regurgitation. There is no aortic va lvular stenosis. Mitral Valve The mitral valve is normal in structure. There is no evidence of significant mitral regurgitation. Th ere is no mitral valve stenosis. Tricuspid Valve The tricuspid valve is normal in structure. There is trivial tricuspid valve regurgitation noted. Pulmonic Valve The pulmonary valve is normal in structure. There is no pulmonic valvular regurgitation. Great Vessels The aortic root is normal in size. The IVC is normal in size and collapses >50% with inspiration. Pericardium There is no pericardial effusion. Conclusion The right atrium size is mildly dilated. The right ventricle is moderately dilated. There is normal right ventricular wall thickness. The right ventricular systolic function is moderately depressed. Moderate concentric LVH. There is normal LV segmental wall motion. LVEF is 55-60%. The left ventricular diastolic function is normal. There is no evidence of significant mitral regurgitation. There is no pericardial effusion.
[2025-04-11] VITALS (9 sets, daily range): BP systolic 108–143; BP diastolic 54–77; PULSE 91–113; RESP 16–22; TEMP 97.9–98.7; O2SAT 87–97
[2025-04-11] MEDS ORDERED: UBID50CA23 PO (12:29)
--- NOTE | 2025-04-11 16:24 | NUR ---
CM NOTE:HOME O2 PT QUALIFY FOR HOME O2, CM OBTAINED SIGNED CONSENT [facility] FOR ANY IN NETWORK DME. CM SENT REQUEST FOR HOME O2 AND SCRIPT TO [facility], PENDING REP RESPONSE. PT PENDING TO [facility] AT THIS TIME. PENDING APPROVAL AND DELIVERY. PRIMARY NURSE GELA SUNG. CM TO CONTINUE TO FOLLOW UP.
--- NOTE | 2025-04-11 16:41 | NUR ---
CM NOTE: HOME O2 CM RECEIVED RESPONSE FROM [facility], UNFORTUNATELY NOT IN NETWORK WITH PT'S INSURANCE. CM PENDING RESPONSE FROM [facility]. CM SENT REQUEST AND SCRIPT TO [facility] AT THIS TIME, PENDING RESPONSE. PT CURRENTLY PENDING TO [facility]. PENDING APPROVAL AND DELIVERY. CM TO CONTINUE TO FOLLOW UP.
--- NOTE | 2025-04-11 17:18 | PN ---
[facility] PROGRESS NOTE Date Patient Seen: Apr 11, 2025 Time of Visit: 1224 Supervising Physician: Dr. Kahn Primary Care Physician: Dr. Ferguson Outpatient Specialists: Dr. Acosta Inpatient Consults: [ ] PROBLEM LIST: Acute hypoxic respiratory failure, POA requiring supplemental oxygen via nasal cannula Acute heart failure preserved ejection fraction exacerbation EF 55-60% per echocardiogram 04/10/2025 Hypertension, POA Hyperlipidemia, POA DM type 2, POA Morbid obesity, class II POA PLAN: VS per unit protocol Failed 6 minute walk we will need home oxygen case management working on arrangements Nursing staff to continue to actively titrate FiO2 as tolerated Continue O2 therapy Keep head of bed above 30 Continue Lasix 40 mg IV b.i.d. x4 doses Continue cardiac monitoring Keep potassium level above four, magnesium level above two Incentive spirometry Keep SBP less than 160 P.r.n. hydralazine and labetalol Keep serum glucose less than 150 ISS and fingerstick per unit protocol INTERVAL HISTORY: 04/10 patient was seen and examined by bedside with family present. Patient remains hypoxic requiring supplemental oxygen via nasal cannula. Patient currently on 4 L. Patient at this time does not report any chest pain does report some shortness of breadth upon minimal exertion. Patient states does not use home oxygen. Patient's chest x-ray showing vascular congestion. Patient to continue on IV Lasix. Patient currently pending official report from echocardiogram. We will follow up with results and continue to monitor patient closely. Patient will require 6 minute walk prior to discharge. Nursing staff to continue to actively titrate FiO2 as tolerated 04/11 patient was seen and examined by bedside with family present. Patient has been weaned down to 3 L nasal cannula yesterday and was on4 L. Patient's echocardiogram shows EF of 55-60%. As per primary nurse patient did failed 6 minute walk require home oxygen case management working on arrangements. Patient denies any chest pain report shortness of breadth is slowly improving. Denies any nausea vomiting or abdominal pain. We will follow up tomorrow morning. And continue to monitor patient closely REVIEW OF SYSTEMS: 12 point ROS reviewed with patient. Pertinent positives mentioned above. Otherwise negative. PHYSICAL EXAM: GENERAL: alert, weak, awake oriented x 3 HEENT: EOMI, Sclera non icteric, moist mucosa NECK: Supple, no JVD, trachea midline LUNGS: Scattered rales on auscultation HEART: Regular rate and rhythm. Normal S1 and S2, without murmurs ABD: Abdomen soft, nontender. Bowel sounds present EXT: No clubbing cyanosis or edema NEURO: Alert and oriented to person, follows commands Vital Signs (last 8hr) Date Time Temp Pulse Resp B/P (MAP) Pulse Ox O2 Delivery O2 Flow Rate FiO2 04/11/25 16:00 98.4 100 18 126/67 92 Room Air 04/11/25 15:35 110 22 21 102 20 28 04/11/25 14:49 98 18 N/Cannula Low lpm 2.0 28 04/11/25 12:00 98.1 101 20 138/77 96 Nasal Cannula 3.5 LABS: Chemistry Labs: Test 04/11/25 15:44 Range/Units Whole Blood Glucose 123 H 70-110 MG/DL DIAGNOSTICS / RADIOLOGY RESULTS: na PLAN NEURO: Minimize central acting medications as possible. Maintain fall precautions, adequate lighting during the day PULMONARY: Supplemental 02 as needed. Maintain aspiration precautions at all times CARDIOVASCULAR: Follow hemodynamics. Vital signs per facility protocol GI & NUTRITION: Continue with nutritional support. Continue stool softeners and laxatives as needed. KIDNEYS & ELECTROLYTES: Strict monitoring of intake, output and overall fluid balance. Avoid nephrotoxic medications to the extent possible. Medications to be dosed according to renal function. Monitor electrolytes and replace as needed ENDOCRINE: Maintain blood glucose between 100-180 at all times. Hypoglycemia protocol in place INFECTIOUS DISEASE: Trend temperature, WBC and procalcitonin level Follow cultures, deescalate antibiotics as soon as possible. Panculture if new onset fever ONCOLOGY/HEMATOLOGY/COAGULATION: Monitor for s/s of bleeding Monitor hemoglobin, coagulation studies as needed SKIN: Pressure ulcer prevention per facility protocol Specialty mattress ORTHO/REHAB: Continue PT/OT Prophylaxis: Continue GI and DVT prophylaxis Code Status: Full Resuscitation Disposition: TBD Case discussed with supervising physician plan of care agreed upon MORENA BECKP Apr 11, 2025 17:18
[2025-04-12] VITALS (11 sets, daily range): BP systolic 102–135; BP diastolic 42–72; PULSE 96–122; RESP 17–20; TEMP 97.2–99.1; O2SAT 95–98
--- NOTE | 2025-04-12 09:25 | NUR ---
KELLI NOTE: HOME O2 CM RECEIVED RESPONSE FROM [facility], NOT IN NETWORK WITH PT'S INSURANCE. CM PENDING RESPONSEN FROM [facility]. CM TO SENT REQUEST ALSO TO [place] [employer] [facility] FOR HOME O2 TODAY. CM PENDING TO [facility]. CM TO CONTINUE TO FOLLOW UP. Addendum: 04/12/25 at 0926 by SEBAS JOSE LVN CM Amended: Links added.
--- NOTE | 2025-04-12 10:58 | NUR ---
CM NOTE: HOME O2 CM SPOKE TO [facility], RECEIVED REQUEST PENDING INSURANCE COVERAGE VERIFICATION AT THIS TIME, REP WILL CALL CM ONCE INSURANCE VERIFIED. CM SPOKE TO [facility], VERBALIZED REQUEST SENT VIA FAX IS BLURRY, REQUESTING TO BE RESENT, THIS CM RESENT PACKET VIA SECURE FAX AT THIS TIME. PENDING REP RESPONSE. CM RECEIVED [facility] RESPONSE VIA EMAIL FROM [email or web address], VERIFIED RECEIVED REQUEST, CURRENTLY PENDING INSURANCE COVERAGE VERIFICATION, REP WILL EMAIL/CALL CM ONCE INSURANCE COVERAGE VERIFIED. CM STILL PENDING TO [facility] FOR HOME O2. PRIMARY JAIME SUNG. [facility] [employer] [facility] UPDATED. CM TO CONTINUE TO FOLLOW UP.
[2025-04-12 11:09] LABS: NUCLEATED RED BLOOD CELLS 0.0 % (0.0-0.19); PLATELET COUNT (AUTO) 255.0 K/uL (130-400); RED BLOOD CELL COUNT(AUTO) 4.55 MIL/uL (4.00-5.50); RED CELL DISTRIBUTION WIDTH 15.3 % (11.0-15.5); WHITE BLOOD COUNT (AUTO) 6.1 K/uL (4.8-10.8)
[2025-04-12 11:14] LABS: CREATININE 0.9 mg/dL (0.5-1.0); GLOMERULAR FILTR. RATE CALC 65.0 mL/min (>90); GLUCOSE,RANDOM 348.0 mg/dL (70-105); SODIUM SERUM 134.0 mmol/L (136-145); UREA NITROGEN, BLOOD 21.0 mg/dL (7-18)
--- NOTE | 2025-04-12 14:30 | PN ---
[facility] PROGRESS NOTE Date Patient Seen: Apr 12, 2025 Time of Visit: 1143 Supervising Physician: Dr. Kahn Primary Care Physician: Dr. Ferguson Outpatient Specialists: Dr. Acosta Inpatient Consults: [ ] PROBLEM LIST: Acute hypoxic respiratory failure, POA requiring supplemental oxygen via nasal cannula Acute heart failure preserved ejection fraction exacerbation EF 55-60% per echocardiogram 04/10/2025 Hypertension, POA Hyperlipidemia, POA DM type 2, POA Morbid obesity, class II POA PLAN: VS per unit protocol Failed 6 minute walk we will need home oxygen case management working on arrangements Nursing staff to continue to actively titrate FiO2 as tolerated Continue O2 therapy Keep head of bed above 30 Discontinue IV Lasix transitioned to p.o. Lasix Continue cardiac monitoring Keep potassium level above four, magnesium level above two Incentive spirometry Keep SBP less than 160 P.r.n. hydralazine and labetalol Keep serum glucose less than 150 ISS and fingerstick per unit protocol INTERVAL HISTORY: 04/10 patient was seen and examined by bedside with family present. Patient remains hypoxic requiring supplemental oxygen via nasal cannula. Patient cur rently on 4 L. Patient at this time does not report any chest pain does report some shortness of breadth upon minimal exertion. Patient states does not use home oxygen. Patient's chest x-ray showing vascular congestion. Patient to continue on IV Lasix. Patient currently pending official report from echocardiogram. We will follow up with results and continue to monitor patient closely. Patient will require 6 minute walk prior to discharge. Nursing staff to continue to actively titrate FiO2 as tolerated 04/11 patient was seen and examined by bedside with family present. Patient has been weaned down to 3 L nasal cannula yesterday and was on4 L. Patient's echocardiogram shows EF of 55-60%. As per primary nurse patient did failed 6 minute walk require home oxygen case management working on arrangements. Patient denies any chest pain report shortness of breadth is slowly improving. Denies any nausea vomiting or abdominal pain. We will follow up tomorrow morning. And continue to monitor patient closely 04/12 patient was seen and examined by bedside with family present. Patient remains on3 L nasal cannula. As per case management home oxygen has been arranged. At time of visit patient denies chest pain report shortness of breadth slowly improving. At this time we will discontinue patient's IV Lasix, and transition patient to oral Lasix. Patient is tolerating p.o. diet. He is having bowel movements. If no acute events occurred overnight plan is for discharge tomorrow morning REVIEW OF SYSTEMS: 12 point ROS reviewed with patient. Pertinent positives mentioned above. Otherwise negative. PHYSICAL EXAM: GENERAL: alert, weak, awake oriented x 3 HEENT: EOMI, Sclera non icteric, moist mucosa NECK: Supple, no JVD, trachea midline LUNGS: Scattered rales on auscultation HEART: Regular rate and rhythm. Normal S1 and S2, without murmurs ABD: Abdomen soft, nontender. Bowel sounds present EXT: No clubbing cyanosis or edema NEURO: Alert and oriented to person, follows commands Vital Signs (last 8hr) Date Time Temp Pulse Resp B/P (MAP) Pulse Ox O2 Delivery O2 Flow Rate FiO2 04/12/25 11:28 101 18 N/Cannula Low lpm 2.0 28 04/12/25 08:00 97.5 98 18 135/70 94 LABS: Hematology Labs: Test 04/12/25 10:52 Range/Units White Blood Count 6.1 4.8-10.8 K/uL Red Blood Count 4.55 4.00-5.50 MIL/uL Hemoglobin 12.6 12.0-16.0 g/dL Hematocrit 40.3 36-48 % Mean Corpuscular Volume 88.6 79-99 fL Mean Corpuscular Hemoglobin 27.7 27.0-33.0 pg Mean Corpuscular Hemoglobin Concent 31.3 L 32.0-36.0 g/dL Red Cell Distribution Width 15.3 11.0-15.5 % Platelet Count 255 # 130-400 K/uL Mean Platelet Volume 10.6 H 7.5-10.5 fL Nucleated Red Blood Cells 0.0 0.0-0.19 % Chemistry Labs: Test 04/12/25 11:56 04/12/25 10:52 Range/Units Whole Blood Glucose 283 #H 70-110 MG/DL Sodium Level 134 L 136-145 mmol/L Potassium Level 3.3 L 3.5-5.1 mmol/L Chloride Level 96 L 101-111 mmol/L Carbon Dioxide Level 29 21-32 mmol/L Blood Urea Nitrogen 21 H 7-18 mg/dL Creatinine 0.9 0.5-1.0 mg/dL Glomerular Filtration Rate Calc 65 >90 mL/min Random Glucose 348 H 70-105 mg/dL Total Calcium 9.0 8.5-10.1 mg/dL DIAGNOSTICS / RADIOLOGY RESULTS: na PLAN NEURO: Minimize central acting medications as possible. Maintain fall precautions, adequate lighting during the day PULMONARY: Supplemental 02 as needed. Maintain aspiration precautions at all times CARDIOVASCULAR: Follow hemodynamics. Vital signs per facility protocol GI & NUTRITION: Continue with nutritional support. Continue stool softeners and laxatives as needed. KIDNEYS & ELECTROLYTES: Strict monitoring of intake, output and overall fluid balance. Avoid nephrotoxic medications to the extent possible. Medications to be dosed according to renal function. Monitor electrolytes and replace as needed ENDOCRINE: Maintain blood glucose between 100-180 at all times. Hypoglycemia protocol in place INFECTIOUS DISEASE: Trend temperature, WBC and procalcitonin level Follow cultures, deescalate antibiotics as soon as possible. Panculture if new onset fever ONCOLOGY/HEMATOLOGY/COAGULATION: Monitor for s/s of bleeding Monitor hemoglobin, coagulation studies as needed SKIN: Pressure ulcer prevention per facility protocol Specialty mattress ORTHO/REHAB: Continue PT/OT Prophylaxis: Continue GI and DVT prophylaxis Code Status: Full Resuscitation Disposition: TBD Case discussed with supervising physician plan of care agreed upon MORENA BECK Apr 12, 2025 14:30
[2025-04-12] MEDS: PoTASSium chloRIDE 20MEQ ER 20 MEQ ERTAB PO ONE (17:21)
[2025-04-12] MEDS ORDERED: PoTASSium chl 10% ELIXIR 20MEQ 20 MEQ/15 ML UDCUP PO PRN (17:30)
[2025-04-12] MEDS ORDERED: PoTASSium chloRIDE 20MEQ ER 20 MEQ ERTAB PO PRN (17:30)
[2025-04-13] VITALS: BP 117/61; PULSE 97; RESP 18; TEMP 98
[2025-04-13 04:00] VITALS: BP 115/54; PULSE 96; RESP 18; TEMP 97.7
[2025-04-13 07:03] VITALS: PULSE 92; RESP 18; O2SAT 97
[2025-04-13 08:00] VITALS: BP 107/45; PULSE 64; RESP 17; TEMP 97.5
[2025-04-13 11:25] LABS: CREATININE 0.8 mg/dL (0.5-1.0); GLOMERULAR FILTR. RATE CALC 75.0 mL/min (>90); GLUCOSE,RANDOM 344.0 mg/dL (70-105); SODIUM SERUM 137.0 mmol/L (136-145); UREA NITROGEN, BLOOD 23.0 mg/dL (7-18)
[2025-04-13 12:00] VITALS: BP 102/55; PULSE 88; RESP 18; TEMP 97.8
--- NOTE | 2025-04-13 14:15 | NUR ---
DISCHARGE PT sitting in bed eyes open w/ family @bed side, able to make needs known denies pain, resp = and unlabored bilat. IV removed intact w/o complications. Discharge instructions given to PT and family members. PT and family members verbally acknowledged understanding. PT escorted to POV via WC by OBSERVER HELPER w/ O2.
--- NOTE | 2025-04-13 19:15 | DS ---
[facility] DISCHARGE SUMMARY Date Patient Seen: Apr 13, 2025 Time of Visit: 1151 Supervising Physician: Dr. Kahn Primary Care Physician: Dr. Ferguson Outpatient Specialists: Dr. Acosta Inpatient Consults: [ ] PROBLEM LIST: Acute hypoxic respiratory failure, POA requiring supplemental oxygen via nasal cannula, resolved we will be discharged with home oxygen Acute heart failure preserved ejection fraction exacerbation EF 55-60% per echocardiogram 04/10/2025, resolved Hypertension, POA Hyperlipidemia, POA DM type 2, POA Morbid obesity, class II POA HOSPITAL COURSE: HPI (per admitting provider)79-year-old female with past medical history of hypertension, DM type 2, hyperlipidemia, gastritis, who presented to ED with complaint of worsening shortness of breaths and found to have congestive heart failure. Apparently patient has been having issues with shortness of breaths worse with exertion, there is no associated dizziness, chest pain, or palpitation. Patient also denies any productive cough, fever, or flu-like symptoms. Patient denies any use of oxygen at home or CPAP. Patient was seen and examined in ED with sister present at bedside. According to the patient she is supposed to see Dr. Acosta for evaluation of worsening shortness of breath however due to family problem they were not able to make the appointment. Patient was seen and examined at bedside with present. Patient is awake alert able to answer simple questions appropriately. Patient states feeling much better. Patient's home oxygen has been arranged. At time of visit patient denies chest pain or shortness of breadth. Denies nausea vomiting or abdominal pain. Instructed patient will be getting discharged today and will need to follow up with PCP within 3-5 days upon discharge, along with following up with Cardiology within 3-5 days upon discharge. Patient voices understanding and agrees with the plan has no questions at this time The patient was treated for the following problems: ACTIVE PROBLEM LIST FOR THE HOSPITALIZATION: CHRONIC PROBLEMS: continue previous management per PCP unless otherwise indicated CUFF [employer]ER FINDINGS/RECOMMENDATIONS: na PROCEDURES: as mentioned above DISCHARGE MEDICATIONS: Pt hemodynamically stable and afebrile at time of discharge. PCP notified of patients admission, hospital course and discharge. Continued Medications: Alendronate Sodium (Alendronate Sodium) 70 Mg Tablet 70 MG PO QWEEK, TAB Ca/D3/Mag/Zinc/Erlinda/Juan/Mgbor (Caltrate 600+D3+Min Chew Tab) 600 Mg-800 Tab.chew 1 EACH PO DAILY, TAB.CHEW Cyclobenzaprine HCl (Cyclobenzaprine HCl) 5 Mg Tablet 1 TAB PO HSPRN PRN for muscle spasms for 30 Days, #30 TAB 0 Refills Diltiazem HCl (Diltiazem HCl) 120 Mg Tablet 120 MG PO DAILY, TAB Metformin HCl (Metformin HCl) 1,000 Mg Tablet 1000 MG PO BID, TAB Metoprolol Succinate (Metoprolol Succinate) 50 Mg Tab.er.24h 50 MG PO HS, TAB Naproxen (Naproxen) 500 Mg Tablet 500 MG PO BID PRN for PAIN, TAB Pantoprazole Sodium (Pantoprazole Sodium) 40 Mg Tablet.dr 40 MG PO DAILY, TAB Pravastatin Sodium (Pravastatin Sodium) 40 Mg Tablet 80 MG PO DAILY, TAB Ubidecarenone (Co Q-10) 50 Mg Capsule 50 MG PO DAILY, CAP PHYSICAL EXAM: GENERAL: alert, weak, awake oriented x 3 HEENT: EOMI, Sclera non icteric, moist mucosa NECK: Supple, no JVD, trachea midline LUNGS: Scattered rales on auscultation HEART: Regular rate and rhythm. Normal S1 and S2, without murmurs ABD: Abdomen soft, nontender. Bowel sounds present EXT: No clubbing cyanosis or edema NEURO: Alert and oriented to person, follows commands FOLLOW-UP: Follow-up with PCP in 2-3 days Follow up with Cardiology within 3-5 days upon discharge RECOMMENDATIONS: See Discharge Instructions This case was seen and discussed with my supervising physician. 35 minutes spent on discharge process, including evaluation of the patient, discussion with nursing staff, medication reconciliation and follow-up appointments MORENA BECK Apr 13, 2025 19:15
== END 2025-04-13 14:15 | disposition home or self-care (01) | DRG 291 ==
LOC: EDH 11:24 → EDHIP 16:26 → 4BH 21:51
PROVIDERS: ADMIT Internal Medicine; ATTEND Internal Medicine
DX: I11.0 Hypertensive heart disease with heart failure (principal); I50.31 Acute diastolic (congestive) heart failure; J96.01 Acute respiratory failure with hypoxia; E78.5 Hyperlipidemia, unspecified; E11.65 Type 2 diabetes mellitus with hyperglycemia; E66.812 Obesity, class 2; Z99.81 Dependence on supplemental oxygen; Z68.31 Body mass index [BMI] 31.0-31.9, adult
CPT/HCPCS: 36415; 71045; 80048; 81003; 82948; 83880; 84484; 85025; 85027; 87426; 93005; 93306; 93356; 94640; 94760; 96374; 99285; G0378; J1650; J1815; J1938; J3490